=== PATIENT | male | born 1995 | race American Indian/Alaskan Native ===

== ENCOUNTER 2020-12-08 23:00 | Emergency (ER) | payer SELFPAY ==
[2020-12-08 23:38] VITALS: BP 122/79
[2020-12-09] MEDS ORDERED: TETRACAINE 0.5% OPHTH SOLN 4ML OU ONE (00:30)
[2020-12-09] MEDS ORDERED: FLUORESCEIN 1 MG STRIP OP ONE (00:35)
[2020-12-09] MEDS ORDERED: HYDROcodone/ACETAMINOPHEN 5-325 MG TAB PO STA (01:18)
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
== END 2020-12-09 03:50 | disposition other institution (70) ==
LOC: ED 23:00
DX: S05.91XA Unspecified injury of right eye and orbit, initial encounter (principal); W22.8XXA Striking against or struck by other objects, initial encounter; Y93.89 Activity, other specified; Y92.89 Other specified places as the place of occurrence of the external cause; Y99.8 Other external cause status